=== PATIENT | male | born 1970 | race Two or more races ===

== ENCOUNTER 2020-07-20 11:10 | Outpatient (REF) | payer OTHER, SELFPAY | END 2020-07-20 11:11 | disposition home or self-care (01) | LOC: HO.LAB 11:10 | PROVIDERS: Visit Provider Internal Medicine | DX: Z20.828 Contact with and (suspected) exposure to other viral communicable diseases (principal) | CPT/HCPCS: 87635 ==

== ENCOUNTER 2020-09-03 16:38 | Outpatient (REF) | payer OTHER, SELFPAY | END 2020-09-03 16:39 | disposition home or self-care (01) | LOC: HO.LAB 16:38 | PROVIDERS: Visit Provider Internal Medicine | DX: Z20.828 Contact with and (suspected) exposure to other viral communicable diseases (principal) | CPT/HCPCS: C9803; U0003 ==